=== PATIENT | male | born 1930 | race Caucasian/White ===

== ENCOUNTER → 2017-05-30 | Outpatient (CLI) | payer MEDICARE ==
--- NOTE | 2017-05-30 15:57 | US ---
EXAMINATION TYPE: US venous doppler duplex LE LT DATE OF EXAM: 05/30/2017 1:22 PM COMPARISON: NONE CLINICAL HISTORY: Left Lower Leg, Edema R60.0. Left leg swelling x 2 months SIDE PERFORMED: Left TECHNIQUE: The lower extremity deep venous system is examined utilizing real time linear array sonog gurpreet with graded compression, doppler sonography and color-flow sonography. VESSELS IMAGED: External Iliac Vein (EIV) Common Femoral Vein Deep Femoral Vein Greater Saphenous Vein * Femoral Vein Popliteal Vein Small Saphenous Vein * Proximal Calf Veins (* superficial vessels) Left Leg: Appears negative for DVT Grayscale, color doppler, spectral doppler imaging performed of the deep veins of the lower extremiti es. There is normal flow, compressibility, vascular waveforms. IMPRESSION: No evident deep venous thrombosis at or above the left knee.
== END | disposition home or self-care (01) ==
LOC: RADUSWWP 12:45
PROVIDERS: ATTEND Family Medicine
DX: R60.0 Localized edema (principal)

== ENCOUNTER → 2017-10-02 | Outpatient (CLI) | payer MEDICARE ==
[2017-10-02 12:39] LABS: Calcium 9.3 mg/dL (8.4-10.2)
[2017-10-02 12:42] LABS: Potassium 4.9 mmol/L (3.5-5.1)
--- NOTE | 2017-10-02 14:13 | MR ---
EXAMINATION TYPE: MR kidney wo/w con DATE OF EXAM: 10/02/2017 COMPARISON: None HISTORY: Renal cyst CONTRAST: Standard multiplanar, multisequence MRI departmental protocol utilizing 9 mL intravenous Gadavist misty olinium contrast. FINDINGS: Within the medial left midpole there is a T2 hyperintense 5 mm cortically based renal lesion. Lateral to this within the posterior midpole cortex there is a T2 hyperintense 4 mm renal lesion that is als o cortically-based. There is no enhancement of these renal lesions. No right renal lesion is identifi ed. No hydronephrosis of either kidney. Minimal nonspecific perinephric fat stranding is present. There is slight symmetric thickening of the adrenal glands in the adrenal glands maintain their yonny l adreniform morphology. Therefore this finding most likely relates to mild benign adrenal gland hype rplasia with no discrete measurable nodule or signal alteration. The liver dome is not entirely imaged. In the remainder the liver there is no intrahepatic biliary du ctal dilatation or abnormal enhancement. No focal hepatic lesion. Few scattered colonic diverticula are noted without pericolonic fat stranding. No large or small tiburcio l dilatation is seen. No adenopathy is identified within the visualized portions of the abdomen or upper pelvis. There is mild pancreatic parenchymal atrophy. No ductal dilatation or abnormal enhancement. The common bile duct measures up to 6 mm, within normal limits. There is tortuosity of the abdominal aorta. Visualized lung bases demonstrate minimal left basilar subsegmental atelectasis. IMPRESSION: Two nonenhancing simple subcentimeter (5 mm and 4 mm) cortical based left renal cysts. Al though these are technically too small to accurately characterize these are highly favored to be cody gn simple cysts. No suspicious renal mass is seen of either kidney. No hydronephrosis.
== END | disposition home or self-care (01) ==
LOC: RADMRIMAIN 11:49
PROVIDERS: ATTEND Family Medicine
DX: N28.1 Cyst of kidney, acquired (principal); I10 Essential (primary) hypertension
CPT/HCPCS: 80048; 74183; 36415; A9581

== ENCOUNTER → 2019-05-08 | Outpatient (CLI) | payer MEDICARE ==
--- NOTE | 2019-05-08 13:00 | US ---
EXAMINATION TYPE: US bladder DATE OF EXAM: 05/08/2019 COMPARISON: NONE CLINICAL HISTORY: R35.0 increased frequency unrination, I38 Endocard. EXAM MEASUREMENTS: Post Void Residual Volume: 15.0 mL Normal Post Void Residual (less than 50ml): Yes IMPRESSION: Normal post void residual in the urinary bladder. Urinary bladder is anechoic and unrema rkable.
--- NOTE | 2019-05-09 07:55 | ECHOF ---
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 This was a technically adequate study. The left ventricular size is normal. There is mild concentric left ventricular hypertrophy. Overa ll left ventricular systolic function is normal with, an EF between 55 - 60 %. The diastolic fillin g pattern is normal for the age of the patient 11.58. The right ventricle is moderately enlarged. Normal LA size by volume 22+/-6 ml/m2. The right atrium is mildly enlarged. Interatrial and interventricular septum intact. There is mild aortic valve sclerosis. There is mild aortic regurgitation. There is no evidence of aortic stenosis. Mild mitral annular calcification present. [id number] mitral regurgitation is present. Moderate tricuspid regurgitation present. There is moderate pulmonary hypertension. The right monica tricular systolic pressure, as measured by Doppler, is 40.07mmHg. Trace/mild (physiologic) pulmonic regurgitation. The aortic root size is normal. IVC Not well visulized. There is no pericardial effusion. CONCLUSIONS -------- 1. Sinus rhythm. 2. This was a technically adequate study. 3. The left ventricular size is normal. 4. There is mild concentric left ventricular hypertrophy. 5. The diastolic filling pattern is normal for the age of the patient 11.58 6. The right ventricle is moderately enlarged. 7. Normal LA size by volume 22+/-6 ml/m2. 8. The right atrium is mildly enlarged. 9. Interatrial and interventricular septum intact. 10. There is mild aortic valve sclerosis. 11. There is mild aortic regurgitation. 12. There is no evidence of aortic stenosis. 13. Mild mitral annular calcification present. 14. [id number] mitral regurgitation is present. 15. Moderate tricuspid regurgitation present. 16. There is moderate pulmonary hypertension. 17. The right ventricular systolic pressure, as measured by Doppler, is 40.07mmHg. 18. Trace/mild (physiologic) pulmonic regurgitation. 19. The aortic root size is normal. 20. IVC Not well visulized. 21. There is no pericardial effusion. ANESTHESIA TECHNICIAN: Claritza Kelly RDCS
== END | disposition home or self-care (01) ==
LOC: RADUSWWP 12:06
PROVIDERS: ATTEND Family Medicine
DX: I08.3 Combined rheumatic disorders of mitral, aortic and tricuspid valves (principal); I27.20 Pulmonary hypertension, unspecified; R35.0 Frequency of micturition
CPT/HCPCS: 76857; 93306

== ENCOUNTER → 2020-06-08 | Outpatient (CLI) | payer MEDICARE ==
--- NOTE | 2020-06-10 09:11 | P.ARTDOP ---
Arterial Doppler Vascular study: Upper extremity arterial Doppler Date of study: 06/08/2020 Reason for study: Progressive right hand numbness. Findings: Doppler waveforms are multiphasic bilaterally throughout. There are no significant right to left or segmental pressure gradients. Impression: Normal study.
== END | disposition home or self-care (01) ==
LOC: RADUSWWP 12:34
PROVIDERS: ATTEND Family Medicine
DX: I73.9 Peripheral vascular disease, unspecified (principal)
CPT/HCPCS: 93923